=== PATIENT | female | born 1995 | race Caucasian/White ===

== ENCOUNTER → 2017-04-08 | Outpatient (CLI) | payer OTHER ==
[~2017-04-08] MED LIST: BIRTH CONTROL PILL PO; NO MEDICATIONS; VOLTAREN75 MG PO
--- NOTE | ~2017-04-08 | MR164 ---
[facility] A Service of [facility] RADIOLOGY TEXT RESULTS PATIENT: RADHA HERNANDEZ LOCATION: [facility] : [birth year] UNIT #: [id number] AGE: [address]: Jeannie Soria MD SEX: F ORDER DR: [id number] [address] [address] [id number] O MR#: [id number] Acc #: [id number] NAME: RADHA HERNANDEZ : 1995 SEX: F STUDY DATE/TIME: 04/08/2017 10:09 UNIT: [facility] ROOM: STUDY DESCRIPTION: MR Shoulder Wo Contrast Lt Attending Physician: Jeannie Soria M.D. Referring Physician: Jeannie Sorai M.D. Ordering Physician: Jeannie Soria M.D. Primary Care Physician: Jeannie Soria M.D. MRI CENTER REPORT This report is preliminary unless electronic signature is present. EXAM MRI of the left shoulder without contrast. HISTORY 21-year-old female complains of left shoulder and arm pain for over a year. No known injury. COMPARISON Left shoulder films, 12/25/16. FINDINGS Multiplanar multiecho imaging was performed of the left shoulder utilizing a high field magnet dedicated protocol. Bone structure and alignment appears normal. No focal marrow edema. Joint fluid within normal limits. The rotator cuff appears intact without tendinopathy or tear. No muscle atrophy or edema. Superior labrum, biceps anchor, and long tendon biceps appears intact. Anterior and posterior labrum unremarkable. Deltoid and extraarticular soft tissues appear normal. There are several mildly prominent left axillary lymph nodes, but these do not appear pathologically enlarged. IMPRESSION Normal MRI of the left shoulder. Dictated by... Candice Ferreira M.D. THIS IS AN ELECTRONICALLY VERIFIED REPORT Candice Ferreira M.D. at 04/09/2017 5:03 PM ZAKIS/tim [facility] A Service of [facility] RADIOLOGY TEXT RESULTS PATIENT: RADHA HERNANDEZ LOCATION: [facility] : [birth year] UNIT #: [id number] AGE: [address]: Jeannie Soria MD SEX: F ORDER DR: TD: 04/09/2017 11:12 JOB #: [id number] MRI CENTER REPORT Page 1 of 1
== END | disposition home or self-care (01) ==
LOC: SMRI 09:37
DX: S46.912A Strain of unspecified muscle, fascia and tendon at shoulder and upper arm level, left arm, initial encounter (principal); M25.512 Pain in left shoulder
CPT/HCPCS: 73221

== ENCOUNTER 2017-05-30 19:41 | Emergency (ER) | payer OTHER ==
[~2017-05-30] VITALS: Ht 154.9 cm; Wt 72.6 kg
[~2017-05-30 19:41] MED LIST changes: -BIRTH CONTROL PILL PO
[2017-05-30] MEDS ORDERED: BIRTH CONTROL PILL PO (19:58)
== END 2017-05-30 20:52 | disposition home or self-care (01) ==
LOC: SED 19:41
DX: B34.9 Viral infection, unspecified (principal)
CPT/HCPCS: 99283